=== PATIENT | female | born 1940 | race American Indian/Alaskan Native ===

== ENCOUNTER 2017-11-10 06:36 | Inpatient (IN) | payer MEDICARE, OTHER ==
[2017-11-03 10:40] VITALS: BMI 28.3
[2017-11-10] MEDS ORDERED: Propofol 10 mg/ml Inj (20 ML) ONE ×2 (09:02→12:05)
[2017-11-10] MEDS ORDERED: Midazolam 2 MG/2 ML VIAL ONE (09:02)
[2017-11-10] MEDS ORDERED: Rocuronium 10 mg/ml (5 ml) ONE ×2 (09:03→10:44)
[2017-11-10] MEDS ORDERED: Bupivacaine 0.25% Inj(30mL) ONE (10:39)
[2017-11-10] MEDS ORDERED: Lidocaine 2 GM Vial 2 GM/50 ML VIAL IV ONE (11:30)
[2017-11-10] MEDS ORDERED: HYDROmorphone 0.5 mg/0.5 ml ISec IVP PRN ×2 (11:33→12:26)
[2017-11-10] MEDS ORDERED: Morphine 4 mg/ml ISec IVP PRN (11:33)
[2017-11-10] MEDS ORDERED: Neostigmine Methylsulfate 3mg/3ml Syringe IV ONE (11:38)
[2017-11-10] MEDS ORDERED: Glycopyrrolate 0.2 mg/ml (2ml vial) ONE (11:38)
[2017-11-10] MEDS ORDERED: Lactated Ringer's 1,000 ML IV SCH ×2 (11:45→12:45)
[2017-11-10] MEDS ORDERED: Oxycodone/Acetaminophen 5/325 mg Tab PO PRN (12:26)
--- NOTE | 2017-11-10 12:26 | PCM.SURG1 ---
Surgeon's Initial Post Op Note - Surgeon's Notes Surgeon: Jadon Napier Personal Banking Advisor: Krystian PGY3, Sasha MSIII Type of Anesthesia: General Endo, Local Pre-Operative Diagnosis: Ovarian mass Operative Findings: Large Right ovarian mass and uterine fibroids Post-Operative Diagnosis: same Operation Performed: Laparotmy w. excision of ovarian mass, FRITZ, omentectomy, and incidental appendectomy Specimen/Specimens Removed: Uterus, B/L ovaries / ovarian mass, omentum, appendix Estimated Blood Loss: EBL {In ML}: 50 Blood Products Given: N/A Drains Used: No Drains Post-Op Condition: Good Date of Surgery/Procedure: 11/10/17 Time of Surgery/Procedure: 12:25
[2017-11-10] MEDS ORDERED: Metoprolol 1 mg/ml Inj IVP ONE (12:30)
[2017-11-10] MEDS: HYDROmorphone 0.5 mg/0.5 ml ISec ONE ×2 (12:49→13:18)
[2017-11-10] MEDS ORDERED: Pneumococcal 23-Valent Vaccine IM ONE (17:12)
[2017-11-10] MEDS: HYDROmorphone 0.5 mg/0.5 ml ISec IVP PRN ×2 (17:28→21:27)
[2017-11-10] MEDS: Insulin Lispro (humaLOG) LOW Coverage SC SCH (21:34)
--- NOTE | 2017-11-10 23:52 | OP ---
PROCEDURE DATE: 11/10/2017 PREOPERATIVE DIAGNOSIS: A 27 cm ovarian mass, right. POSTOPERATIVE DIAGNOSIS: A 27 cm ovarian mass, right. PROCEDURE PERFORMED: Ureteral catheter insertions by Dr. Spears, laparotomy, pelvic washings, right salpingo-oophorectomy, total abdominal hysterectomy, left salpingo-oophorectomy, and an omentectomy. SURGEONS: The omentectomy was performed by Dr. Napier. The laparotomy, pelvic washings, right salpingo-oophorectomy, and total abdominal hysterectomy with left salpingo-oophorectomy was performed by Dr. Diop. ANESTHESIA: General endotracheal. ESTIMATED BLOOD LOSS: Approximately 100 mL. FINDINGS: A 27 cm multicystic ovarian mass inconclusive on pathology examination with frozen section, awaiting for final report. The anterior abdominal wall peritoneal lining was found to be smooth. No excrescences noted. Liver was found to be smooth without any excrescences. Gallbladder normal. Small bowel and large intestine found to be normal. The mass itself was confined more to the right ovary, in part of the salpinx. Left ovary was found to be normal. The patient was noted to have multiple fibroids inside the uterine cavity plus a 4 x 4 cm lower uterine segment/cervical fibroid. DESCRIPTION OF THE PROCEDURE: The procedure went as follows. After a long discussion was held with the patient and the daughter regarding her procedure, the entire operative procedure was discussed, the patient agreed and signed her consents. The patient was brought into the operating room. General endotracheal anesthesia was induced. The patient was prepped and draped in usual sterile fashion. Then, Dr. Spears proceeded to insert ureteral catheters. This dictation would be performed by Dr. Spears. Once Dr. Spears inserted the catheter, the patient was re-prepped and re-draped. After an appropriate time-out, a vertical skin incision was made. As this mass was noted to be above the umbilicus, the incision was made approximately 4 cm below the xiphoid, straight down to the suprapubic area. It was extended down to the fascia. The fascia was opened. The rectus muscle was split. Peritoneum was visualized and grasped with 2 hemostats, opened superiorly and inferiorly avoiding the bladder. Pelvic washings were immediately taken. Once the washings were taken, they were sent to Cytology for examination. This was followed with a gentle examination of the mass. The mass was noted to be smooth with no excrescences. Small bowel and large bowel were noted to be smooth without any abnormalities. Omentum was not caked and found to be normal in size, appearance, and palpation. Examination of the pelvic and lower abdominal peritoneal gracia was found to be smooth without any abnormalities. Examination of the liver revealed no excrescences, no tumors noted. Gall bladder was found to be normal. Diaphragm was examined and found to be normal. Stomach was examined and found to be normal. With the bowels packed back and retractors inserted, the 27 cm mass was elevated upwards and examined. It was doubly clamped at its ovarian ligament as well as the infundibulopelvic ligament. The ureters were palpated during the entire procedure. The mass was amputated off safely without any spillage or any loss of blood. It was sent to Pathology for frozen section examination. With the tumor coming back as no visible signs of typical adenocarcinoma, a decision still was made at that timeframe to perform the patient's hysterectomy and remove the other ovary. The round ligaments were visualized and grasped, elevated upwards, clamped, cut, and tied with 0 Vicryl suture. The bladder flaps were developed in the vesicouterine fold. Ovarian ligaments were then clamped, cut and tied with 0 Vicryl suture. Uterine vessels were skeletonized. The cardinal and uterosacral ligaments were clamped, cut, and tied with 0 Vicryl sutures. Sharp dissection was carried down on the cervix, bringing the bladder down. Paracervical branches were then clamped, cut, and tied with Juni's and suture ligated. Again, ureters were palpated during the entire procedure and kept away from surgery sites. The cervix was then amputated from the posterior vaginal vault, has a pustular material came out of the cervix and out of the uterus immediately. This specimen was sent to Pathology for examination. The pelvis was irrigated with copious amounts of the water, then suture ligated with 0 Vicryl suture incorporating the vaginal mucosa as well as the musculofascial layers. Once this was closed, hemostasis was re-examined and found to be excellent. At this timeframe, a long discussion was held with Dr. Napier regarding the size of the mass whether this was a malignancy or not. A decision not just to place the intraperitoneal ports was made, but decision to perform an omentectomy was made. Dr. Napier will continue on with the dictation of the omentectomy. At this timeframe, the procedure was terminated. The peritoneal and abdominal cavity was closed in an appropriate fashion. This again will be dictated by Dr. Napier. The procedure was then completed. After complete closure, the patient was sent to the recovery room in stable condition. A long discussion was held by myself with the daughter postoperatively. Raffi Diop MD
[2017-11-11] MEDS: Lactated Ringer's 1,000 ML IV SCH (04:15)
[2017-11-11] MEDS: HYDROmorphone 0.5 mg/0.5 ml ISec IVP PRN ×4 (06:12→21:36)
--- NOTE | 2017-11-11 07:16 | OP ---
PROCEDURE DATE: SURGEON: Dr. Napier. ASSISTANTS: Dr. Diop and Dr. Boland. DESCRIPTION OF PROCEDURE: I was asked to be the assistant portfolio manager for Dr. Diop for the hysterectomy and removal of this massive ovarian cyst. After the hysterectomy, I became the surgeon and performed an omentectomy. The abdomen packed. The omentum was pulled up. The line was readily developed between the omentum and the colon, going completely to the right side and most of the omentum on the left side was readily . Line of dissection was then made to remove the omentum intact. This was done with the ligature and removed quickly and sent to the lab. The abdomen was irrigated and dried. There was nothing untoward. The appendix was removed. It was taken with Allis. The mesentery was taken with the Harmonic scalpel and the base was taken with ETELVINA 30. The abdomen was irrigated and dried. There was nothing untoward, there was no bleeding, the hysterectomy site looked beautiful. The abdomen was closed with running #1 PDS above and below and tied in the middle. This was done after the On-Q was placed on the left and right sides. Skin was closed with miranda. The Marcaine was injected very nicely. The Shepherd was removed with the ureteral catheters, was intact and a regular Shepherd placed. The patient was taken to the recovery room in good condition after the sponge and needle count were declared correct. Flynn Napier MD
--- NOTE | 2017-11-11 07:41 | CP.PCM.PN ---
Subjective - Date & Time of Evaluation Date of Evaluation: 11/11/17 Time of Evaluation: 07:39 - Subjective Subjective: Patient seen and examined at bedside. Per nursing no acute events occurred overnight. Patient reports some abdominal discomfort. Patient denies any fevers , chills, headaches, nausea, constipation, or any other complaints. Objective - Vital Signs/Intake and Output Vital Signs (last 24 hours): Temp Pulse Resp BP Pulse Ox 100.0 F H 78 18 173/91 H 69 L 11/11/17 04:13 11/10/17 17:22 11/10/17 16:44 11/10/17 17:22 11/10/17 14:05 Intake and Output: 11/11/17 11/11/17 06:59 18:59 Intake Total 60 Output Total 1100 Balance -1040 - Medications Medications: Current Medications Acetaminophen (Tylenol 325mg Tab) 650 mg PO Q6H PRN PRN Reason: Fever >100.4 F Last Admin: 11/11/17 04:13 Dose: 650 mg Enoxaparin Sodium (Lovenox) 40 mg SC DAILY [facility] PRN Reason: Protocol Glimepiride (Amaryl) 2 mg PO DAILY [facility] Hydrochlorothiazide (Microzide) 12.5 mg PO DAILY [facility] Hydromorphone HCl (Dilaudid) 0.5 mg IVP Q4H PRN PRN Reason: Pain, severe (8-10) Last Admin: 11/11/17 06:12 Dose: 0.5 mg Lactated Ringer's (Lactated Ringer's) 1,000 mls @ 50 mls/hr IV .Q20H [facility] Last Admin: 11/11/17 04:15 Dose: 50 mls/hr Insulin Human Lispro (Humalog Low) 0 units SC ACHS [facility] PRN Reason: Protocol Last Admin: 11/10/17 21:34 Dose: Not Given Losartan Potassium (Cozaar) 50 mg PO DAILY [facility] Metoprolol Succinate (Toprol Xl) 50 mg PO DAILY [facility] Non-Formulary Medication (Plant Stanol Kaylen [Cholest Off]) 1 tab PO DAILY [facility] Ondansetron HCl (Zofran Inj) 4 mg IVP ONCE PRN PRN Reason: Nausea/Vomiting Ondansetron HCl (Zofran Inj) 4 mg IVP Q4 PRN PRN Reason: Nausea/Vomiting Oxycodone/Acetaminophen (Percocet 5/325 Mg Tab) 1 tab PO Q4 PRN PRN Reason: Pain, moderate (4-7) Stop: 11/13/17 12:27 Sennosides (Senokot Tab) 17.2 mg PO HS [facility] Last Admin: 11/10/17 21:27 Dose: 17.2 mg Tramadol HCl (Ultram) 50 mg PO TID PRN PRN Reason: Pain, severe (8-10) - Head Exam Head Exam: ATRAUMATIC, NORMAL INSPECTION, NORMOCEPHALIC - Eye Exam Eye Exam: EOMI - ENT Exam ENT Exam: Mucous Membranes Moist - Respiratory Exam Respiratory Exam: Clear to Ausculation Bilateral - Cardiovascular Exam Cardiovascular Exam: REGULAR RHYTHM - GI/Abdominal Exam GI & Abdominal Exam: Soft, Normal Bowel Sounds Additional comments: incision site no signs of erythema, swelling or discharge. - Extremities Exam Extremities Exam: Normal Inspection - Back Exam Back Exam: NORMAL INSPECTION. absent: CVA tenderness (R), paraspinal tenderness - Neurological Exam Neurological Exam: Alert, Awake - Psychiatric Exam Psychiatric exam: Normal Affect, Normal Mood - Skin Skin Exam: Dry Assessment and Plan - Assessment and Plan (Free Text) Assessment: 77 year old female with a past medical history of hypertension and type 2 diabetes who comes in with an ovarian mass. Plan: -Out of bed to chair -Continue pain management. -Will continue to monitor.
[2017-11-11] MEDS: Insulin Lispro (humaLOG) LOW Coverage SC SCH ×4 (08:05→21:36)
[2017-11-11 08:20] LABS: BASO # 0.01 K/mm3 (0.0-2.0); BASO % 0.1 % (0.0-3.0); EOS % 0.1 % (1.5-5.0); GRAN # 8.56 (1.4-6.5); HEMOGLOBIN 12.3 g/dL (12.0-16.0); LYMPH % 8.8 % (22.0-35.0); MEAN CELL VOLUME 86.1 fl (80.0-105.0); MEAN CORPUSCULAR HEMOGLOBIN 28.4 pg (25.0-35.0); MEAN PLATELET VOLUME 9.9 fl (7.0-11.0); MONO # 1.3 (0.1-0.6); RBC 4.33 10^6/uL (3.5-6.1); RED CELL DISTRIBUTION WIDTH 14.1 % (11.5-14.5); WHITE BLOOD COUNT 10.8 10^3/ul (4.5-11.0)
[2017-11-11 08:33] LABS: BLOOD UREA NITROGEN 14 mg/dL (7-21); GFR AFRICAN-AMERICAN > 60; GFR NON-AFRICAN AMERICAN > 60
--- NOTE | 2017-11-11 08:44 | OP ---
PROCEDURE DATE: 11/10/2017 Genitourinary portion of the operative report. PREOPERATIVE DIAGNOSIS Ovarian mass. POSTOPERATIVE DIAGNOSIS: Ovarian mass PROCEDURE: Cystoscopy with insertion of bilateral ureteral catheter. SURGEON: Sheldon Spears MD ANESTHESIA: General. SPECIMENS There were none. DRAINS: 5-Moroccan ureteral catheters and an 18-Moroccan Shahbaz Shepherd catheter. COMPLICATIONS: There were none. OPERATIVE FINDINGS: After informed consent was obtained, the patient was taken to the operating room, placed on the operating table. Anesthesia was administered. The patient was placed in dorsal lithotomy position and prepped and draped in the usual sterile fashion. A 22-Moroccan cystoscope was passed into the patient's bladder and a full survey inspection was performed. There were no stones, papillary tumors or foreign bodies noted. There was some distortion of the bladder from a large pelvic mass pushing on it, but there were no intraluminal abnormalities noted. Both ureteral orifices were able to be visualized and appeared within normal limits. At this point, a 5-Moroccan olive-tip catheter was introduced through the cystoscope and guided into the right ureteral orifice. The catheter was advanced proximally under direct vision. There appeared to be some obstruction, and at this point, Dr. Diop was able to push the mass from the abdominal side towards patient's left side. At this point, the ureteral catheter was able to be advanced up the ureter until it was in at the appropriate depth. At this point, a second olive-tip ureteral catheter was introduced through the cystoscope and guided into the left ureteral orifice. The ureteral catheter was able to be advanced proximally under direct vision until it was in at the appropriate depth. When both ureteral catheters were in place, the cystoscope was removed while leaving the ureteral catheters in place. An Shahbaz Shepherd catheter was then passed and placed to straight bladder drainage. The ureteral catheters were then secured to the Shahbaz Shepherd catheter. At this point, the urologic portion of the procedure was complete. The patient was left in the operating room under general anesthesia in order to undergo a resection of the large mass by Dr. Raffi Diop and Dr. Flynn Napier. Please refer to Dr. Diop's dictation for the remainder of the operative report. Sheldon Spears MD
--- NOTE | 2017-11-11 08:59 | CON ---
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 She has since then seen my brother, Dr. Nicholas Jarquin for her regular care for hypertension, type 2 diabetes, peptic ulcer disease, and status post TIA. She was recently noted to have a pelvic mass. CT scan workup was done and today, she underwent surgery with Dr. Raffi Diop. The patient is now being seen postop in room 567, this evening with her daughter at the bedside. PAST MEDICAL HISTORY: Significant for hypertension, diabetes, peptic ulcer disease, and TIA as noted above. HOME MEDICATIONS: Include aspirin 81 mg, simvastatin 20 mg, Amaryl 2 mg b.i.d., and Hyzaar 50/12.5 once a day. ALLERGIES: SHE HAS NO KNOWN ALLERGIES. SOCIAL HISTORY: Does not smoke, but does have history of tobacco use. She occasionally drinks alcohol. Eats regular diet with noncontributory family history. She is . REVIEW OF SYSTEMS: Otherwise, unremarkable. Her weight is approximately 140 pounds. PHYSICAL EXAMINATION: VITAL SIGNS: Postoperatively were reviewed and are essentially unremarkable except for the blood pressure having been initially slightly elevated on arrival to the floor and then coming down to the 150s/88 range. HEENT: Head and neck are unremarkable. Conjunctivae are pink. Mucous membranes are moist. NECK: Supple without masses. Thyroid is not palpable. There are no carotid bruits. LUNGS: Clear, right and left anteriorly and laterally. HEART: Regular. ABDOMEN: Was bandaged and the patient was holding a pillow. EXTREMITIES: Showed no edema, with SCDs that were in place. NEUROLOGIC: She is awake, alert and clear. Moving all extremities without focal weakness. IMPRESSION: 1. Doing rather well postoperatively. 2. History of hypertension. 3. Type 2 diabetes. 4. History of peptic ulcer disease. 5. Status post transient ischemic attack. PLAN: We will resume aspirin and prior medications. Follow sugars and blood pressure as well as statin for cholesterol control. Flynn Jarquin MD MTDD
[2017-11-11] MEDS ORDERED: Non Formulary Medication (Losartan/Hydrochlorothiazide [Losartan-Hctz 50-12.5 Mg Tab] 1 TA PO SCH (10:00)
[2017-11-11] MEDS: Metoprolol Succinate 50 mg XL Tab PO SCH (10:38)
[2017-11-11] MEDS: Enoxaparin 40 mg Syringe SC SCH (10:40)
[2017-11-11] MEDS: [UNRECOGNIZED DRUG - REMARK] PO SCH (10:41)
[2017-11-12] MEDS: HYDROmorphone 0.5 mg/0.5 ml ISec IVP PRN ×4 (01:38→21:51)
--- NOTE | 2017-11-12 02:26 | PN ---
DATE: 11/11/2017 SUBJECTIVE: The patient was seen this Tuesday morning in room 567, bed 2 with her daughter at the bedside. She is awake, alert, clear, appropriate, feeling well after the surgery with only mild to moderate abdominal discomfort postoperatively. PHYSICAL EXAMINATION: LUNGS: Showed good aeration, right and left. HEART: Regular. Not tachycardic. EXTREMITIES: Show no edema. NEUROLOGIC; The patient is awake, alert, clear, moving all extremities. IMPRESSION: Postop, ovarian mass. PLAN: Out of bed, incentive spirometry. I spoke with the patient and her daughter regarding postop followup care and therapy. I explained incentive spirometry to the patient and we will follow closely. Later in the day, I received a call that a bed may be available in the transitional care unit. If it is okay with the air export operations agent to whose service the patient is admitted, she will go to TCU. I would be glad to follow her there and assume care in TCU . Flynn Jarquin MD
[2017-11-12] MEDS: Lactated Ringer's 1,000 ML IV SCH (03:42)
[2017-11-12] MEDS: Insulin Lispro (humaLOG) LOW Coverage SC SCH ×4 (07:45→22:29)
[2017-11-12 07:54] LABS: HEMOGLOBIN 12.7 g/dL (12.0-16.0); MEAN CELL VOLUME 87.1 fl (80.0-105.0); MEAN CORPUSCULAR HEMOGLOBIN 28.7 pg (25.0-35.0); MEAN CORPUSCULAR HGB CONC 32.9 g/dl (31.0-37.0); RBC 4.43 10^6/uL (3.5-6.1); RED CELL DISTRIBUTION WIDTH 14.2 % (11.5-14.5); WHITE BLOOD COUNT 12.3 10^3/ul (4.5-11.0)
[2017-11-12 08:00] LABS: ALBUMIN 3.9 g/dL (3.0-4.8); BLOOD UREA NITROGEN 14 mg/dL (7-21); CALCIUM 8.8 mg/dL (8.4-10.5); GFR AFRICAN-AMERICAN > 60; GFR NON-AFRICAN AMERICAN > 60
[2017-11-12 08:01] LABS: ALB/GLOB RATIO 1.3 (1.1-1.8); ALT/SGPT 22 U/L (7-56); AST/SGOT 50 U/L (14-36)
[2017-11-12] MEDS: Metoprolol Succinate 50 mg XL Tab PO SCH (09:05)
[2017-11-12] MEDS: Enoxaparin 40 mg Syringe SC SCH (09:06)
[2017-11-12] MEDS: [UNRECOGNIZED DRUG - REMARK] PO SCH (09:07)
--- NOTE | 2017-11-12 14:09 | CP.PCM.PN ---
Subjective - Date & Time of Evaluation Date of Evaluation: 11/12/17 Time of Evaluation: 07:20 - Subjective Subjective: Surgery Progress note. Dr. Napier Pt seen and examined at bedside. No acute events overnight. Patient ambulating well. Pain well tolerated. No N/V/D. No F/C. Objective - Vital Signs/Intake and Output Vital Signs (last 24 hours): Temp Pulse Resp BP Pulse Ox 97.6 F 93 H 17 171/89 H 95 11/12/17 08:26 11/12/17 09:06 11/12/17 08:26 11/12/17 09:06 11/12/17 08:26 Intake and Output: 11/12/17 11/12/17 06:59 18:59 Intake Total 710 Output Total 1 Balance 709 - Medications Medications: Current Medications Acetaminophen (Tylenol 325mg Tab) 650 mg PO Q6H PRN PRN Reason: Fever >100.4 F Last Admin: 11/11/17 04:13 Dose: 650 mg Enoxaparin Sodium (Lovenox) 40 mg SC DAILY [facility] PRN Reason: Protocol Last Admin: 11/12/17 09:06 Dose: 40 mg Glimepiride (Amaryl) 2 mg PO DAILY [facility] Last Admin: 11/12/17 10:36 Dose: 2 mg Hydrochlorothiazide (Microzide) 12.5 mg PO DAILY [facility] Last Admin: 11/12/17 09:06 Dose: 12.5 mg Hydromorphone HCl (Dilaudid) 0.5 mg IVP Q4H PRN PRN Reason: Pain, severe (8-10) Last Admin: 11/12/17 08:42 Dose: 0.5 mg Lactated Ringer's (Lactated Ringer's) 1,000 mls @ 50 mls/hr IV .Q20H [facility] Last Admin: 11/12/17 03:42 Dose: Not Given Insulin Human Lispro (Humalog Low) 0 units SC ACHS [facility] PRN Reason: Protocol Last Admin: 11/12/17 11:45 Dose: 1 units Losartan Potassium (Cozaar) 50 mg PO DAILY [facility] Last Admin: 11/12/17 09:06 Dose: 50 mg Metoprolol Succinate (Toprol Xl) 50 mg PO DAILY [facility] Last Admin: 11/12/17 09:05 Dose: 50 mg Non-Formulary Medication (Plant Stanol Kaylen [Cholest Off]) 1 tab PO DAILY [facility] Last Admin: 11/12/17 09:07 Dose: Not Given Ondansetron HCl (Zofran Inj) 4 mg IVP ONCE PRN PRN Reason: Nausea/Vomiting Ondansetron HCl (Zofran Inj) 4 mg IVP Q4 PRN PRN Reason: Nausea/Vomiting Oxycodone/Acetaminophen (Percocet 5/325 Mg Tab) 1 tab PO Q4 PRN PRN Reason: Pain, moderate (4-7) Stop: 11/13/17 12:27 Sennosides (Senokot Tab) 17.2 mg PO HS [facility] Last Admin: 11/11/17 21:35 Dose: 17.2 mg Tramadol HCl (Ultram) 50 mg PO TID PRN PRN Reason: Pain, severe (8-10) - Labs Labs: 11/12/17 07:00 11/12/17 07:00 - Constitutional Appears: Non-toxic, No Acute Distress - Head Exam Head Exam: ATRAUMATIC, NORMAL INSPECTION, NORMOCEPHALIC - Eye Exam Eye Exam: EOMI, Normal appearance - ENT Exam ENT Exam: Mucous Membranes Moist - Respiratory Exam Respiratory Exam: NORMAL BREATHING PATTERN. absent: Accessory Muscle Use, Respiratory Distress - Cardiovascular Exam Cardiovascular Exam: absent: JVD - GI/Abdominal Exam GI & Abdominal Exam: Soft. absent: Distended, Guarding, Rigid, Tenderness, Rebound - Extremities Exam Extremities Exam: Normal Inspection. absent: Calf Tenderness - Neurological Exam Neurological Exam: Alert, Awake, Oriented x3 - Skin Skin Exam: Dry, Intact, Normal Color, Warm Assessment and Plan - Assessment and Plan (Free Text) Assessment: 77yo F s/p Laparotomy w excision of ovarian mass, FRITZ, omentectomy, Appendectomy. POD2 Plan: - Continue liquids as tolerated. Encourage PO intake - D/C IVF - OOB to chair/ambulate with assistance as needed - Encourage IS use - Pain control, stool softener Further recs as per Dr. Karthikeyan Yu PGY1 surgery pager: [phone]
--- NOTE | 2017-11-13 01:07 | PN ---
DATE: 11/12/2017 SUBJECTIVE: Patient was seen this Tuesday morning in room 567, bed 2, resting comfortably in bed. She is awake, alert, and in good spirits. Denies abdominal pain. Certainly denies chest pain or respiratory difficulty. I talked to her at length about the plan for her to go to transitional care unit for additional physical therapy and recovery. Initially, she thought it would be best to go home, but now, she is okay with this idea. She said she has been out of bed into the chair, although when I see her, she is usually in bed. Physical examination is otherwise unremarkable. Labs are holding steady. I will await her bed availability at transitional care and the patient is admitted to Dr. Diop's service and I will either follow her in TCU or it is okay with me for somebody attending her during her stay on TCU if Dr. Diop wishes. Flynn Jarquin MD
[2017-11-13] MEDS: HYDROmorphone 0.5 mg/0.5 ml ISec IVP PRN ×2 (04:57→12:08)
[2017-11-13] MEDS: Insulin Lispro (humaLOG) LOW Coverage SC SCH ×2 (08:26→12:02)
[2017-11-13 08:43] VITALS: BP 169/98; RESP 18; TEMP 98.1; O2SAT 97
[2017-11-13] MEDS: Enoxaparin 40 mg Syringe SC SCH (09:53)
[2017-11-13] MEDS: Metoprolol Succinate 50 mg XL Tab PO SCH (09:55)
[2017-11-13 09:56] VITALS: PULSE 98
[2017-11-13] MEDS: [UNRECOGNIZED DRUG - REMARK] PO SCH (10:00)
--- NOTE | 2017-11-13 12:24 | CP.PCM.PN ---
Subjective - Date & Time of Evaluation Date of Evaluation: 11/13/17 Time of Evaluation: 12:22 - Subjective Subjective: Surgery: Dr. Napier Pt seen and examined. Resting comfortably in bed. Pain controlled. Tolerated CLD. No Flatus/BM, pt would like to eat more. Objective - Vital Signs/Intake and Output Vital Signs (last 24 hours): Temp Pulse Resp BP Pulse Ox 98.1 F 98 H 18 169/98 H 97 11/13/17 08:43 11/13/17 09:55 11/13/17 08:43 11/13/17 09:55 11/13/17 08:43 Intake and Output: 11/13/17 11/13/17 06:59 18:59 Intake Total 1320 Output Total 400 Balance 920 - Medications Medications: Current Medications Acetaminophen (Tylenol 325mg Tab) 650 mg PO Q6H PRN PRN Reason: Fever >100.4 F Last Admin: 11/11/17 04:13 Dose: 650 mg Enoxaparin Sodium (Lovenox) 40 mg SC DAILY [facility] PRN Reason: Protocol Last Admin: 11/13/17 09:53 Dose: 40 mg Glimepiride (Amaryl) 2 mg PO DAILY [facility] Last Admin: 11/13/17 09:54 Dose: 2 mg Hydrochlorothiazide (Microzide) 12.5 mg PO DAILY [facility] Last Admin: 11/13/17 09:54 Dose: 12.5 mg Hydromorphone HCl (Dilaudid) 0.5 mg IVP Q4H PRN PRN Reason: Pain, severe (8-10) Last Admin: 11/13/17 12:08 Dose: 0.5 mg Insulin Human Lispro (Humalog Low) 0 units SC [facility] PRN Reason: Protocol Last Admin: 11/13/17 12:02 Dose: Not Given Losartan Potassium (Cozaar) 50 mg PO DAILY [facility] Last Admin: 11/13/17 09:55 Dose: 50 mg Metoprolol Succinate (Toprol Xl) 50 mg PO DAILY [facility] Last Admin: 11/13/17 09:55 Dose: 50 mg Non-Formulary Medication (Plant Stanol Kaylen [Cholest Off]) 1 tab PO DAILY [facility] Last Admin: 11/13/17 10:00 Dose: Not Given Ondansetron HCl (Zofran Inj) 4 mg IVP ONCE PRN PRN Reason: Nausea/Vomiting Ondansetron HCl (Zofran Inj) 4 mg IVP Q4 PRN PRN Reason: Nausea/Vomiting Oxycodone/Acetaminophen (Percocet 5/325 Mg Tab) 1 tab PO Q4 PRN PRN Reason: Pain, moderate (4-7) Stop: 11/13/17 12:27 Sennosides (Senokot Tab) 17.2 mg PO HS JANE Last Admin: 11/12/17 21:50 Dose: 17.2 mg Tramadol HCl (Ultram) 50 mg PO TID PRN PRN Reason: Pain, severe (8-10) - Labs Labs: 11/12/17 07:00 11/12/17 07:00 - Constitutional Appears: Non-toxic, No Acute Distress - Head Exam Head Exam: ATRAUMATIC, NORMOCEPHALIC - Eye Exam Eye Exam: EOMI - ENT Exam ENT Exam: Mucous Membranes Moist - Respiratory Exam Respiratory Exam: NORMAL BREATHING PATTERN. absent: Accessory Muscle Use, Respiratory Distress - GI/Abdominal Exam GI & Abdominal Exam: Soft. absent: Distended, Firm, Guarding, Rigid, Tenderness , Rebound Additional comments: midline incision C/D/I w. miranda in place - Extremities Exam Extremities Exam: absent: Calf Tenderness, Pedal Edema - Neurological Exam Neurological Exam: Alert, Awake, Oriented x3 - Psychiatric Exam Psychiatric exam: Normal Affect, Normal Mood Assessment and Plan - Assessment and Plan (Free Text) Assessment: 77F s/p Laparotomy w excision of ovarian mass, FRITZ, omentectomy, Appendectomy, POD#3 -c/w pain management -will start regular diet -encourage OOB / ambulation / IS use -DVT prophylaxis -d/w attending Marcellaitis PGY3
--- NOTE | 2017-11-14 19:20 | DS ---
CHIEF COMPLAINT: This is a delightful 77-year-old woman who sees Dr. Bridger Jarquin in the office on a regular basis for care of her hypertension, diabetes, peptic ulcer disease and status post TIA. She was recently found to have a pelvic mass. CT workup was done and she is scheduled for surgery with Dr. Raffi Diop. She was admitted for postop care. COURSE OF HOSPITAL STAY: Patient was followed by Surgery/DICTAPHONE OPERATOR as well as Medicine. Blood pressure and diabetes were managed. She was comfortable. Her postop course was quite uncomplicated and uneventful. Her daughter who is most frequently at the bedside and updated on her mom's condition. She did well, began to ambulate. Arrangements were made for her to be evaluated by Physical Therapy and our Transitional Care Unit. She will be taken to TCU. A bed was available today, Tuesday and the daughter and the patient were well informed. She was discharged and readmitted to TCU for additional physical therapy and conditioning. Medications will be continued. Consultation with Dr. Diop. We will follow up with in case there is an exercise and activity report. FINAL DISCHARGE DIAGNOSES: 1. Ovarian mass resected with pathology pending at the time of this dictation. 2. Hypertension. 3. Diabetes. 4. History of peptic ulcer disease. 5. Status post transient ischemic attack. Flynn Jarquin MD
== END 2017-11-13 15:38 | DRG 743 ==
LOC: SDAINP 06:36 → EDSTATUS 08:30 → 5RNO 15:05
PROVIDERS: ADMIT Obstetrics & Gynecology Gynecology; ATTEND Obstetrics & Gynecology Gynecology
PROC: 0T9B80Z Drainage of Bladder with Drainage Device, Via Natural or Artificial Opening Endoscopic (ICD-10-PCS; 2017-11-10)
PROC: 0T9880Z Drainage of Bilateral Ureters with Drainage Device, Via Natural or Artificial Opening Endoscopic (ICD-10-PCS; 2017-11-10)
PROC: 0UT90ZZ Resection of Uterus, Open Approach (ICD-10-PCS; principal; 2017-11-10 08:30)
PROC: 0UT20ZZ Resection of Bilateral Ovaries, Open Approach (ICD-10-PCS; 2017-11-10 08:30)
PROC: 0UT70ZZ Resection of Bilateral Fallopian Tubes, Open Approach (ICD-10-PCS; 2017-11-10 08:30)
PROC: 0DBU0ZZ Excision of Omentum, Open Approach (ICD-10-PCS; 2017-11-10 08:30)
PROC: 0DTJ0ZZ Resection of Appendix, Open Approach (ICD-10-PCS; 2017-11-10 08:30)
DX: D27.0 Benign neoplasm of right ovary (principal); D25.9 Leiomyoma of uterus, unspecified; D26.9 Other benign neoplasm of uterus, unspecified; E11.9 Type 2 diabetes mellitus without complications; I10 Essential (primary) hypertension; K27.9 Peptic ulcer, site unspecified, unspecified as acute or chronic, without hemorrhage or perforation; Z86.73 Personal history of transient ischemic attack (TIA), and cerebral infarction without residual deficits

== ENCOUNTER 2017-11-13 14:38 | Inpatient (IN) | payer OTHER ==
[2017-11-03 10:40] VITALS: BMI 28.3
[2017-11-13] MEDS: Insulin Lispro (humaLOG) LOW Coverage SC SCH ×2 (17:00→22:38)
[2017-11-13] MEDS: HYDROmorphone 0.5 mg/0.5 ml ISec IVP PRN (19:15)
[2017-11-13] MEDS: Docusate-Senna 50 mg-8.6 mg Tab PO SCH (21:08)
[2017-11-14] MEDS: Enoxaparin 40 mg Syringe SC SCH (05:08)
[2017-11-14] MEDS: HYDROmorphone 0.5 mg/0.5 ml ISec IVP PRN ×3 (06:06→21:14)
[2017-11-14] MEDS: Insulin Lispro (humaLOG) LOW Coverage SC SCH ×4 (06:42→21:32)
[2017-11-14] MEDS: Metoprolol Succinate 50 mg XL Tab PO SCH (08:33)
[2017-11-14] MEDS ORDERED: Enoxaparin 40 mg Syringe SC SCH (10:00)
[2017-11-14] MEDS: Docusate-Senna 50 mg-8.6 mg Tab PO SCH (21:11)
[2017-11-15] MEDS: Enoxaparin 40 mg Syringe SC SCH (05:46)
[2017-11-15] MEDS: Insulin Lispro (humaLOG) LOW Coverage SC SCH ×4 (06:30→22:30)
[2017-11-15] MEDS: HYDROmorphone 0.5 mg/0.5 ml ISec IVP PRN ×4 (06:53→20:37)
[2017-11-15] MEDS: Metoprolol Succinate 50 mg XL Tab PO SCH (08:14)
--- NOTE | 2017-11-15 13:32 | PN ---
DATE: 11/14/2017 DAILY PROGRESS NOTE SUBJECTIVE: The patient is a 77-year-old female with a past medical history positive for hypertension, diabetes, peptic ulcer disease. She is also known to be status post TIA, who as an outpatient was complaining of increasing abdominal girth, found to have a large pelvic mass. She was cleared by Dr. Cao from Cardiology and was admitted to Dr. Diop's service after a surgical removal of this large pelvic mass. Initial report from Dr. Diop was that at least on frozen section, it seemed to be benign. She did undergo omentectomy as well with Dr. Napier's assistants during surgery. The patient did well postoperatively and on 11/13/2017, was transferred to the Intensive Care Unit. When seen today, the patient was lying in bed. She was awake, alert and oriented. Her daughter was present. She was in good spirits. She denied any abdominal pain. She said she was eating well. However, had not yet had a bowel movement. Her lungs are clear. Her heart was regular and abdomen was nontender on light palpation. So we are encouraging the physical therapy for ambulation. She is receiving Lovenox for DVT prophylaxis. We are also continuing with her Amaryl, Cozaar, Humalog insulin coverage, Microzide, Senokot, Toprol, Ultram and Zofran as needed. The patient will be followed closely. Bridger Jarquin MD
[2017-11-15] MEDS: Docusate-Senna 50 mg-8.6 mg Tab PO SCH (22:31)
--- NOTE | 2017-11-15 23:39 | PN ---
DATE: 11/15/2017 Nahomy remains in transitional care unit, room 317, bed 1, this Tuesday afternoon postop resection of ovarian mass. I am awaiting pathology on the patient specimen. Here in TCU She engages in the activities of the unit, physical therapy, ambulation, out of bed, etc. Continues to do well. Follow labs periodically. Flynn Jarquin MD MTDD
[2017-11-16] MEDS: Enoxaparin 40 mg Syringe SC SCH (05:43)
[2017-11-16] MEDS: HYDROmorphone 0.5 mg/0.5 ml ISec IVP PRN ×3 (05:49→18:31)
[2017-11-16] MEDS: Insulin Lispro (humaLOG) LOW Coverage SC SCH ×4 (06:32→22:13)
[2017-11-16 07:13] LABS: BASO # 0.03 K/mm3 (0.0-2.0); BASO % 0.6 % (0.0-3.0); EOS # 0.3 (0.0-0.7); EOS % 4.9 % (1.5-5.0); GRAN # 3.11 (1.4-6.5); GRAN % 60.8 % (50.0-68.0); HEMOGLOBIN 10.9 g/dL (12.0-16.0); LYMPH # 0.8 (1.2-3.4); LYMPH % 15.3 % (22.0-35.0); MEAN CORPUSCULAR HGB CONC 33.3 g/dl (31.0-37.0); MEAN PLATELET VOLUME 9.5 fl (7.0-11.0); MONO # 0.9 (0.1-0.6); MONO % 18.4 % (1.0-6.0); RBC 3.76 10^6/uL (3.5-6.1); RED CELL DISTRIBUTION WIDTH 13.8 % (11.5-14.5); WHITE BLOOD COUNT 5.1 10^3/ul (4.5-11.0)
[2017-11-16 07:31] LABS: BLOOD UREA NITROGEN 10 mg/dL (7-21); CALCIUM 8.1 mg/dL (8.4-10.5); GFR AFRICAN-AMERICAN > 60; GFR NON-AFRICAN AMERICAN > 60
[2017-11-16] MEDS: Metoprolol Succinate 50 mg XL Tab PO SCH (11:16)
[2017-11-16] MEDS: Docusate-Senna 50 mg-8.6 mg Tab PO SCH (21:12)
[2017-11-17] MEDS: Enoxaparin 40 mg Syringe SC SCH (05:11)
--- NOTE | 2017-11-17 05:52 | PN ---
DATE: 11/17/2017 SUBJECTIVE: The patient is a 77-year-old female with a past medical history positive for hypertension, diabetes, peptic ulcer disease, and status post TIA. She was found to have a large pelvic mass in outpatient workup for an increasing abdominal girth. She was cleared by Dr. Cao from Cardiology and underwent surgery with Dr. Diop, the horticulture supervisor, for removal of this pelvic mass. She was transferred to the Transitional Care Unit on 11/13/2017 and has been doing well ever since. When seen today, she is resting comfortably. She is in bed. Her spirits are good. She denies pain. She admits to having bowel movements. Her appetite is good. PHYSICAL EXAMINATION: LUNGS: Clear. HEART: Regular. ABDOMEN: Soft and nontender. EXTREMITIES: Free of cyanosis, clubbing or edema. 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 The cervix with a nabothian cyst and mild chronic inflammation. The corpus of the uterus had atrophic endometrium, leiomyomas with foci of calcification. The fallopian tube and ovary had no significant abnormalities. The omentum showed vascular congestion and mild chronic inflammation. There was a well-formed appendix with no significant histological abnormalities. Therefore the large ovarian mass was benign and no signs of cancer. The patient will continue physical therapy and we will continue to be following closely on the Transitional Care Unit. Bridger Jarquin MD MTDBeltran
[2017-11-17] MEDS: Insulin Lispro (humaLOG) LOW Coverage SC SCH ×4 (07:04→22:15)
[2017-11-17] MEDS: Metoprolol Succinate 50 mg XL Tab PO SCH (08:46)
[2017-11-17] MEDS: Docusate-Senna 50 mg-8.6 mg Tab PO SCH (22:15)
[2017-11-18] MEDS: Enoxaparin 40 mg Syringe SC SCH (05:29)
[2017-11-18] MEDS: Insulin Lispro (humaLOG) LOW Coverage SC SCH ×4 (06:32→21:44)
[2017-11-18] MEDS: Metoprolol Succinate 50 mg XL Tab PO SCH (08:43)
[2017-11-18 16:56] VITALS: RESP 18
[2017-11-18] MEDS: Docusate-Senna 50 mg-8.6 mg Tab PO SCH (21:44)
--- NOTE | 2017-11-19 00:21 | PN ---
DATE: 11/18/2017 SUBJECTIVE: The patient is a 77-year-old female with a past medical history positive for hypertension, diabetes, peptic ulcer disease, and status post transient ischemic attack. She had a pelvic mass seen on CAT scan as an outpatient workup. She was cleared by Dr. Cao, the laborer carpentry dock and underwent surgery with Dr. Diop, the side door worker for removal of this pelvic mass. She did well postoperatively, was transferred to the Transitional Care Unit on 11/13/2017 and has been doing very, very well. When seen today, she is sitting up at the edge of the bed. Her daughter is present in the room. She is in good spirits. Appetite is good. Bowel movements are good. CURRENT MEDICATIONS: Include Amaryl 2 mg, Lovenox, Cozaar 50 mg, hydrochlorothiazide 12.5 mg and Toprol 50 mg. PHYSICAL EXAMINATION: VITAL SIGNS: This morning, she was afebrile with temperature of 98.3, blood pressure is 141/69 and heart rate is 66. HEART: Regular. LUNGS: Clear. ABDOMEN: Soft and nontender. EXTREMITIES: Free of cyanosis, clubbing or edema. PLAN: The patient is looking forward to discharge on Tuesday. We will continue to follow up patient closely until then. Her abdominal miranda should be removed within the next two days. Bridger Jarquin MD
[2017-11-19] MEDS: Enoxaparin 40 mg Syringe SC SCH (05:29)
[2017-11-19] MEDS: Insulin Lispro (humaLOG) LOW Coverage SC SCH ×4 (06:32→22:07)
[2017-11-19] MEDS: Metoprolol Succinate 50 mg XL Tab PO SCH (08:00)
[2017-11-19] MEDS: Docusate-Senna 50 mg-8.6 mg Tab PO SCH (22:08)
--- NOTE | 2017-11-19 23:55 | PN ---
DATE: 11/19/2017 SUBJECTIVE: The patient is a 77-year-old female with a past medical history positive for hypertension, diabetes, peptic ulcer disease, and status post transient ischemic attack, which was found to have a pelvic mass on CAT scan as an outpatient workup. She was cleared by Dr. Cao, her stockroom clerk, underwent surgery with Dr. Diop, the toll bridge attendant and this pelvic mass was removed. She did well postoperatively, was transferred to the Transitional Care Unit on and continues to do well. Pathology report on the uterus, fallopian tubes, ovaries and appendix were negative for carcinoma. The patient is doing very well as physical therapy and is looking forward to discharge to home in two days. PHYSICAL EXAMINATION: LUNGS: Clear. HEART: Regular. ABDOMEN: Soft and nontender. PLAN: I asked the nursing staff to get a staple removal kit to the floor and to notify the surgical residents, it is time for removal of her abdominal miranda. The patient will be reevaluated in the morning. Bridger Jarquin MD
[2017-11-20] MEDS: Enoxaparin 40 mg Syringe SC SCH (06:23)
[2017-11-20] MEDS: Insulin Lispro (humaLOG) LOW Coverage SC SCH ×4 (07:03→21:29)
[2017-11-20] MEDS: Metoprolol Succinate 50 mg XL Tab PO SCH (07:58)
[2017-11-20 17:08] VITALS: TEMP 98.4
[2017-11-20] MEDS: Docusate-Senna 50 mg-8.6 mg Tab PO SCH (21:22)
--- NOTE | 2017-11-21 01:29 | PN ---
DATE: 11/20/2017 DAILY PROGRESS NOTE SUBJECTIVE: The patient is a 77-year-old female with the past medical history positive for hypertension, diabetes, peptic ulcer disease, status post transient ischemic attack. In an outpatient workup, the patient was found to have a large pelvic mass. She was cleared for surgery by her frog or oyster farmworker, Dr. Cao, underwent surgery with Dr. Diop, the staff development educator and the pelvic mass was removed. She did well postoperatively and was transferred to the Transitional Care Unit where she continues to do well. Pathology report on the uterus, fallopian tubes, ovaries and appendix were all negative for carcinoma. The patient is doing very well and she is looking forward to discharge to home in the a.m. The patient will receive a prescription for Eliquis 2.5 mg to be taken twice a day. This was called into the [facility] on [address] [facility] in [place] and patient will be seen in 1 to 2 weeks post discharge. She was seen by a rn surgical yesterday and her surgical miranda were removed. Bridger Jarquin MD
[2017-11-21 06:22] VITALS: BP 163/60; PULSE 67; O2SAT 97
[2017-11-21] MEDS: Enoxaparin 40 mg Syringe SC SCH (06:33)
[2017-11-21] MEDS: Insulin Lispro (humaLOG) LOW Coverage SC SCH (06:37)
[2017-11-21] MEDS: Metoprolol Succinate 50 mg XL Tab PO SCH (07:06)
--- NOTE | 2017-11-22 07:36 | DS ---
HISTORY OF PRESENT ILLNESS: The patient is a 77-year-old female with the past medical history positive for hypertension, diabetes, peptic ulcer disease, status post transient ischemic attack. During an outpatient workup it was revealed the patient had a large pelvic mass. She was cleared for surgery by her snubber and underwent surgery with Dr. Diop, the chef. Postoperatively, the patient did very well and was transferred to the transitional care unit where she continued to do well. Pathology report show the uterus, fallopian tubes, ovaries and appendix were all negative for carcinoma. The patient did very well on the transitional care unit. Her Lovenox was changed to Eliquis 2.5 mg to be taken twice a day and this was called into the [facility] in [place] on [address] and the patient has continued to be taking that for the next 2 to 3 months. The patient is to be seen in the office in 1 to 2 weeks post discharge. FINAL DIAGNOSES: Benign tumor of the fallopian tubes, adenomyosis, adenomyoma and leiomyomas with foci of calcifications of the uterine corpus, mild chronic inflammation of the omentum. No adenocarcinoma seen on pathology. History of hypertension, history of diabetes mellitus, history of peptic ulcer disease, status post transient ischemic attack. Bridger Jarquin MD
== END 2017-11-21 09:29 | disposition home or self-care (01) | DRG 950 ==
LOC: TRCU 14:38
PROVIDERS: ADMIT Internal Medicine; ATTEND Internal Medicine
PROC: F07Z9FZ Gait Training/Functional Ambulation Treatment using Assistive, Adaptive, Supportive or Protective Equipment (ICD-10-PCS; principal; 2017-11-15)
PROC: F07L6YZ Therapeutic Exercise Treatment of Musculoskeletal System - Lower Back / Lower Extremity using Other Equipment (ICD-10-PCS; 2017-11-15)
PROC: F07Z8FZ Transfer Training Treatment using Assistive, Adaptive, Supportive or Protective Equipment (ICD-10-PCS; 2017-11-15)
PROC: F08Z2FZ Grooming/Personal Hygiene Treatment using Assistive, Adaptive, Supportive or Protective Equipment (ICD-10-PCS; 2017-11-16)
PROC: F08Z1FZ Dressing Techniques Treatment using Assistive, Adaptive, Supportive or Protective Equipment (ICD-10-PCS; 2017-11-18)
DX: Z48.89 Encounter for other specified surgical aftercare (principal); D27.0 Benign neoplasm of right ovary; D25.9 Leiomyoma of uterus, unspecified; N80.0 Endometriosis of uterus; N85.8 Other specified noninflammatory disorders of uterus; N88.8 Other specified noninflammatory disorders of cervix uteri; I10 Essential (primary) hypertension; E11.9 Type 2 diabetes mellitus without complications; Z86.73 Personal history of transient ischemic attack (TIA), and cerebral infarction without residual deficits; Z87.11 Personal history of peptic ulcer disease; Z79.84 Long term (current) use of oral hypoglycemic drugs